=== PATIENT | female | born 1980 | race Caucasian/White ===

== ENCOUNTER 2017-04-17 08:32 | Emergency (ER) | payer MEDICAID ==
[~2017-04-17] VITALS: Ht 149.9 cm; Wt 66.7 kg
[~2017-04-17 08:32] MED LIST: CIPRO 250MG TA250 MG PO; FLONASE 50 MCG16 GM; KEFLEX 500MG.500 MG PO; NOMEDS; PHENERGAN 25MG.25 M1 PO; PREDNISONE 20MG20 MG PO; PYRIDIUM100 M1 PO; TESSALON PERLE100 MG PO; ZITHROMAX Z PA250 MG PO; ZOFRAN ODT4 MG PO
--- NOTE | 2017-04-17 08:47 | Emergency Room Report ---
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 N Clinical Suspician of Infection? Y Mental Status: 1 - Regular (Normal Baseline) Sepsis Risk:Low Sepsis Risk Have you (or family members/close friends) recently traveled outside the [place]? N If Yes, where/when: Have you had exposure to infectious disease within the past month? N TB? Other? Specify: Patient states last night she missed a step and twisted her RIGHT foot and ankle she states she did not fall there was no other trauma involved. He complains of pain and swelling at the top of her RIGHT foot and outer lateral malleolus moderate achy pain she states it radiates about 2 inches above her malleolus. ALLERGIES Coded Allergies: Sulfa (Sulfonamide Antibiotics) (Intermediate, I-HIVES 12/04/15) penicillin G (Intermediate, I-HIVES 12/04/15) Home Medications Active Scripts Fluticasone Propionate (Flonase 50 Mcg Nasal [place]) 2 SPRAY NA DAILY #1 BOT Prov: 09/18/16 Prednisone (Prednisone 20MG) 20 MG PO BID #10 TAB Prov: 09/18/16 Azithromycin (Zithromycin (Z-OTONIEL) 250MG Tab) 250 MG PO DAILY #6 TAB Prov: 09/18/16 Azithromycin (Zithromycin (Z-OTONIEL) 250MG Tab) 250 MG PO DAILY #6 TAB Prov: 12/04/15 Prednisone (Prednisone 20MG) 20 MG PO BID #10 TAB Prov: 12/04/15 BENZONATATE (Benzonatate) 100 MG PO TID #15 CAP Prov: 12/04/15 Ondansetron (Zofran 4MG Odt) 4 MG PO Q6HP PRN NAUSEA AND VOMITING #28 ODT Prov: 10/07/16 Reported Medications No Home Medications (NO HOME MEDICATIONS) History Medical History General CAD? No Angina: No VA: No Hypertension? No Hyperlipidemia? No CHF? No DVT? No PE? No COPD? No Asthma? No Anemia? No GERD? No Gastric ulcers? No GI Bleed? No Hernia? No Thyroid Problems? No Hypothyroidism? No CVA? No Seizures? Yes Diabetes? No Renal Insuffiency? No End Stage Renal Disease? No UTI? No Stones? No GB Disease: No Nephritic Syndrome? No Asplenia? No Hepatitis? No Sickle Cell Disease? No Arthritis? No Migraines? No Cataracts? No Glaucoma? No MRSA? No HIV? No TB? No Anxiety? No Depression? No Cancer? 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 Eyes: conjunctiva/corneas clear ENT: Mucous membranes moist. Neck: No jugular venous distention. Cardiac: regular rate and rhythm Lungs: Clear to auscultation bilaterally Abdomen: Nontender, Nondistended, positive bowel sounds, no rebound : No CVA tenderness Extremities: no edema Musculoskeletal: patient has swelling over the RIGHT lateral malleolus and some swelling on the top of her RIGHT foot laterally. Patient has tenderness on the RIGHT lateral malleolus and on her lateral RIGHT foot 2+ pulses capillary refill intact Sensation intact. Skin: No rashes to exposed skin. Neurologic: Alert. No gross focal deficits Psychiatric: Normal affect (Jakob MONTANO, Ferdinand) General Appearance normal appearance Respiratory Status No: respiratory distress. Cardiovascular no JVD Neurologic alert Medical Decision Making LABS/Meds/Orders Pt receiving controlled substance in ED? No Results/Orders Orders Procedure Date/time Status STABILIZE JOINT 04/17 920 Active STABILIZE JOINT 04/17 916 Active FOOT-RT-3 VIEWS 04/17 839 Active ANKLE-RT-3 VIEWS 09/29 0839 Active XRAY/CT/US XRAY/CT/US 1 XRAY foot XR interpretation by reviewed by me Xray Results cuboid avulsion fracture XRAY/CT/US 2 XRAY ankle XR interpretation by reviewed by me Xray Results no fracture seen Departure Departure Time of Disposition 915 Disposition DC Home or Self Care(routine) Clinical Impression Primary Impression: Fracture of cuboid of right foot Qualifiers: Encounter type: initial encounter Fracture type: closed Fracture alignment: nondisplaced Qualified Code: S92.214A - Nondisplaced fracture of cuboid bone of right foot, initial encounter for closed fracture Condition STABLE Referrals Jasmina MONTANO,Claude Razo (Family) Saloni MONTANO,Steven Patient Instructions DI for Foot Fracture Additional Instructions crutches, nonweightbearing foot followup with orthopedics Discharge Counseling Counseled pt/family regarding diagnosis, test results, medications/RX, home care Prescriptions Current Visit Scripts IBUPROFEN (Motrin 600MG) 600 MG PO Q6HP PRN BREAKTHROUGH MILD PAIN #12 TAB ED Critical Care Critical Care No at 0911
[2017-04-17] MEDS ORDERED: MOTRIN 600MG.600 MG PO (09:20)
--- NOTE | 2017-04-17 09:41 | RADIOLOGY REPORT PS360 ---
ANKLE-RT-3 VIEWS HISTORY: Pain following injury twisted foot ankle ORDERING PHYSICIAN: Ferdinand Robert MD PATIENT AGE: 37 years COMPARISON: None FINDINGS: Well-circumscribed calcific density is present at the tip of the lateral malleolus consistent with old injury versus ununited ossification center. No acute fracture or dislocation. Minimal spurring of the anterior distal tibia. IMPRESSION: No acute finding
--- NOTE | 2017-04-17 09:42 | RADIOLOGY REPORT PS360 ---
FOOT-RT-3 VIEWS HISTORY: Pain following injury twisted foot ankle ORDERING PHYSICIAN: Ferdinand Robert MD PATIENT AGE: 37 years COMPARISON: None FINDINGS: No fracture or dislocation. No lytic or blastic change. There is normal mineralization.. The joint spaces are well-preserved. No significant degenerative/arthritic changes. No erosive changes evident. IMPRESSION: Negative, no acute finding
[2017-04-17 10:06] VITALS: BP 118/79
== END 2017-04-17 10:07 | disposition home or self-care (01) ==
LOC: ER 08:32
DX: S92.214A Nondisplaced fracture of cuboid bone of right foot, initial encounter for closed fracture (principal); X50.1XXA Overexertion from prolonged static or awkward postures, initial encounter; Y92.9 Unspecified place or not applicable; F17.210 Nicotine dependence, cigarettes, uncomplicated; Z88.0 Allergy status to penicillin; Z88.2 Allergy status to sulfonamides